=== PATIENT | female | born 1985 | race Native Hawaiian/Other Pacific Islander ===

== ENCOUNTER 2016-06-25 12:25 | Emergency (ER) | payer MEDICAID ==
[~2016-06-25] VITALS: Ht 160 cm; Wt 89.8 kg
[~2016-06-25 12:25] MED LIST: PREN-96 PO
[2016-06-25 13:02] LABS: Basophils # (auto) 0.1 uL; Eosinophils # (auto) 0.3 uL; Hemoglobin 14.2 g/dL (12.2-16.2); Lymphocytes # (auto) 2.1 uL; Lymphocytes % (auto) 19.7 % (10.0-50.0); Mean Corpuscular Hgb Conc. 33.8 g/dL (32.0-36.0); Mean Corpuscular Volume 85.8 fL (80.0-100.0); Mean Platelet Volume 7.2 fL (7.4-10.4); Monocytes # (auto) 0.4 uL; Monocytes % (auto) 4.1 % (0.0-12.0); Neutrophils # (auto) 7.8 uL; Neutrophils % (auto) 72.2 % (37.0-80.0); Platelet Count (auto) 440 10^3/uL (140-450); Red Cell Distribution Width 13.7 % (11.6-16.0); White Blood Cell 10.8 10^3/uL (4.4-10.8)
[2016-06-25 13:26] LABS: Anion Gap 12 (5-15); BUN/Creatinine Ratio 15.3; Blood Urea Nitrogen 11 mg/dL (7-18); Calcium 7.9 mg/dL (8.5-10.1); Carbon Dioxide 23 mmol/L (21-32); Chloride 102 mmol/L (98-107); GFR African American 121 mL/min; GFR Non-African American 100 mL/min; Glucose 109 mg/dL (74-106); Potassium 4.2 mmol/L (3.5-5.1); Sodium 137 mmol/L (136-145)
[2016-06-25 13:29] LABS: Alkaline Phosphatase 72 U/L (45-117); Bilirubin, Total 0.5 mg/dL (0.2-1.0)
[2016-06-25 14:37] LABS: Aspartate Aminotransferase 14 U/L (15-37)
[2016-06-25 20:59] LABS: Urine Bilirubin Negative (Negative); Urine Color Yellow (Yellow); Urine Glucose Normal (Normal); Urine Ketone Negative (Negative); Urine Nitrite Negative (Negative); Urine RBC 7 /hpf (0 - 4); Urine Squamous Epithelial Cell MOD /hpf (<5); Urine Urobilinogen Normal (Negative)
[2016-06-25 21:43] LABS: Urine Blood 2+ /uL (Negative)
[2016-06-25] MEDS ORDERED: cefTRIAXone 1GM/50ML D5W 50 ML IV ONE (22:30)
[2016-06-25 23:29] VITALS: BP 102/66
== END 2016-06-25 23:34 | disposition home or self-care (01) ==
LOC: ER 12:25
DX: R07.89 Other chest pain (principal); N39.0 Urinary tract infection, site not specified; Z88.6 Allergy status to analgesic agent
CPT/HCPCS: 36415; 71020; 80053; 81001; 84484; 84702; 85025; 85379; 93005; 96365; 99285; J0696

== ENCOUNTER 2017-11-05 13:40 | Inpatient (IN) | payer MEDICAID ==
[~2017-11-05] VITALS: Ht 160 cm; Wt 94.3 kg
[2017-11-05] MEDS: LACTATED RINGER'S 1,000 ML IV SCH ×2 (07:30→16:10)
[2017-11-05] MEDS ORDERED: BETAMETHASONE ACET (6MG/ML) 5ML VIAL IM ONE (14:45)
[2017-11-05 15:13] LABS: Urine Bacteria MOD /hpf (None Seen); Urine Blood 3+ /uL (Negative); Urine Mucus FEW (None Seen); Urine Specific Gravity 1.017 (1.001-1.035); Urine WBC 29 /hpf (0 - 5)
[2017-11-05] MEDS ORDERED: LACT. RINGERS/OXYTOCIN 20UNITS 1,000 ML IV SCH (15:29)
[2017-11-05] MEDS ORDERED: NALBUPHINE HCL 10 MG/1ml INJECTION IV PRN (15:30)
[2017-11-05] MEDS ORDERED: PROMETHAZINE HCL 25 MG/ML 1ML IV PRN (15:30)
[2017-11-05] MEDS ORDERED: PHISODERM TOP SOLN 240ML BTL TOP PRN (15:30)
[2017-11-05] MEDS ORDERED: WITCH HAZEL-GLYCERIN PAD TOP PRN (15:30)
[2017-11-05] MEDS ORDERED: DERMOPLAST 60ML BOTTLE TOP PRN (15:30)
[2017-11-05] MEDS ORDERED: LIDOCAINE 2% (LOCAL ANESTH.) PF 5ml SDV ID ONE (15:30)
[2017-11-05 15:59] LABS: Basophils # (auto) 0.1 uL; Basophils % (auto) 0.4 % (0.0-2.0); Eosinophils # (auto) 0.2 uL; Eosinophils % (auto) 1.5 % (0.0-7.0); Hematocrit 39.9 % (36.0-46.0); Hemoglobin 13.7 g/dL (12.2-16.2); Lymphocytes # (auto) 1.5 uL; Lymphocytes % (auto) 13.2 % (10.0-50.0); Mean Corpuscular Hemoglobin 29.8 pg (28.0-32.0); Mean Corpuscular Hgb Conc. 34.3 g/dL (32.0-36.0); Monocytes # (auto) 0.7 uL; Neutrophils # (auto) 9.1 uL; Neutrophils % (auto) 78.9 % (37.0-80.0); Nucleated Red Blood Cells % 0.2 %; Platelet Count (auto) 270 10^3/uL (140-450); Red Blood Cells 4.59 10^6/uL (4.0-5.20); White Blood Cell 11.5 10^3/uL (4.4-10.8)
[2017-11-05 16:15] LABS: Albumin 2.6 g/dL (3.4-5.0); BUN/Creatinine Ratio 14.3; Calcium 8.4 mg/dL (8.5-10.1); Potassium 3.7 mmol/L (3.5-5.1)
[2017-11-05 16:18] LABS: Bilirubin, Total 0.7 mg/dL (0.2-1.0); Total Protein 7.1 g/dL (6.4-8.2)
[2017-11-05 16:28] LABS: INR 0.88 (0.9-1.15); Partial Thromboplastin Time 29.9 sec (23.78-33.04); Prothrombin Time 9.5 sec (9.27-12.13)
[2017-11-05] MEDS ORDERED: IBUPROFEN 600 MG TAB PO PRN (20:45)
[2017-11-05 23:00] VITALS: BP 137/73
[2017-11-06] MEDS ORDERED: LACT. RINGERS/OXYTOCIN 20UNITS 500 ML IV ONE (01:26)
[2017-11-06 03:00] VITALS: BP 114/73
[2017-11-06] MEDS ORDERED: ACETAMINOPHEN 325 MG TAB PO ONE (03:38)
[2017-11-06] MEDS: ACETAMINOPHEN 325 MG TAB PO PRN ×3 (03:42→22:02)
[2017-11-06 07:27] VITALS: BP 129/78
[2017-11-06] MEDS: LACT. RINGERS/OXYTOCIN 20UNITS 1,000 ML IV SCH ×3 (07:30→16:24)
[2017-11-06] MEDS ORDERED: DOCUSATE CALCIUM 240 MG CAP PO SCH (10:00)
[2017-11-06] MEDS: LACTATED RINGER'S 1,000 ML IV SCH ×2 (11:13→16:24)
[2017-11-06 11:29] VITALS: BP 131/62
[2017-11-06 15:00] VITALS: BP 123/79
[2017-11-06 19:15] VITALS: BP 119/77
[2017-11-06 23:00] VITALS: BP 119/77
[2017-11-07 03:00] VITALS: BP 121/75
[2017-11-07] MEDS: ACETAMINOPHEN 325 MG TAB PO PRN (03:09)
[2017-11-07 07:20] VITALS: BP 108/68
[2017-11-07 11:00] VITALS: BP 118/77
[2017-11-08 05:06] LABS: RPR Non Reactive (Non Reactive)
== END 2017-11-07 12:15 | disposition home or self-care (01) | DRG 560 ==
LOC: LDRP 13:40 → OBSVTOIN 13:40 → LDRP 15:29
PROVIDERS: ADMIT Specialist; ATTEND Specialist
PROC: 10E0XZZ Delivery of Products of Conception, External Approach (ICD-10-PCS; principal; 2017-11-05)
PROC: 10907ZC Drainage of Amniotic Fluid, Therapeutic from Products of Conception, Via Natural or Artificial Opening (ICD-10-PCS; 2017-11-05)
PROC: 3E0E3GC Introduction of Other Therapeutic Substance into Products of Conception, Percutaneous Approach (ICD-10-PCS; 2017-11-05)
PROC: 0HQ9XZZ Repair Perineum Skin, External Approach (ICD-10-PCS; 2017-11-05)
DX: O76 Abnormality in fetal heart rate and rhythm complicating labor and delivery (principal); O70.9 Perineal laceration during delivery, unspecified; Z37.0 Single live birth; Z3A.36 36 weeks gestation of pregnancy; Z88.8 Allergy status to other drugs, medicaments and biological substances
CPT/HCPCS: 36415; 59025; 59409; 80053; 81001; 81002; 85025; 85610; 85730; 86592; 86850; 86900; 86901; 96365; 96366; J2001; J2590

== ENCOUNTER 2019-03-01 02:01 | Emergency (ER) | payer MEDICAID ==
[~2019-03-01] VITALS: Ht 160 cm; Wt 98.5 kg
[2019-03-01 02:45] LABS: Basophils # (auto) 0.1 uL; Basophils % (auto) 0.6 % (0.0-2.0); Eosinophils # (auto) 1.2 uL; Eosinophils % (auto) 11.5 % (0.0-7.0); Hematocrit 41.5 % (36.0-46.0); Hemoglobin 14.3 g/dL (12.2-16.2); Lymphocytes % (auto) 28.1 % (10.0-50.0); Mean Corpuscular Hemoglobin 29.3 pg (28.0-32.0); Mean Corpuscular Hgb Conc. 34.4 g/dL (32.0-36.0); Mean Corpuscular Volume 85.2 fL (80.0-100.0); Monocytes # (auto) 0.6 uL; Monocytes % (auto) 6.1 % (0.0-12.0); Neutrophils # (auto) 5.7 uL; Neutrophils % (auto) 53.7 % (37.0-80.0); Nucleated Red Blood Cells % 0.1 %; Platelet Count (auto) 334 10^3/uL (140-450); Red Blood Cells 4.88 10^6/uL (4.0-5.20); Red Cell Distribution Width 13.5 % (11.8-14.3); White Blood Cell 10.6 10^3/uL (4.4-10.8)
[2019-03-01 03:03] LABS: Albumin 3.4 g/dL (3.4-5.0); BUN/Creatinine Ratio 18.8; Calcium 8.8 mg/dL (8.5-10.1); Potassium 3.9 mmol/L (3.5-5.1)
[2019-03-01 03:06] LABS: Bilirubin, Total 0.3 mg/dL (0.2-1.0); Total Protein 8.1 g/dL (6.4-8.2)
[2019-03-01 04:07] VITALS: BP 122/74
[2019-03-01 04:34] LABS: Urine Bacteria FEW /hpf (None Seen); Urine Blood 3+ /uL (Negative); Urine Mucus FEW (None Seen); Urine WBC 82 /hpf (0 - 5)
[2019-03-01] MEDS: cefTRIAXone 1GM/50ML D5W 50 ML IV ONE (04:50)
[2019-03-01] MEDS: MORPHINE SULFATE 4 MG/ML SYR/VIAL IV ONE (04:50)
[2019-03-01] MEDS: ONDANSETRON HCL 4 MG/2 ML VIAL IV ONE (04:50)
== END 2019-03-01 05:48 | disposition home or self-care (01) ==
LOC: ER 02:03
DX: N39.0 Urinary tract infection, site not specified (principal); Z88.6 Allergy status to analgesic agent; Z88.8 Allergy status to other drugs, medicaments and biological substances
CPT/HCPCS: 36415; 74176; 80053; 81001; 85025; 96365; 96375; 99284; J0696; J2270; J2405

== ENCOUNTER 2021-01-26 11:00 | Observation (INO) | payer MEDICAID | END 2021-01-26 12:35 | disposition home or self-care (01) | LOC: LDRP 11:00 | PROVIDERS: ADMIT Obstetrics & Gynecology Obstetrics; ATTEND Obstetrics & Gynecology Obstetrics | DX: O36.8320 Maternal care for abnormalities of the fetal heart rate or rhythm, second trimester, not applicable or unspecified (principal); O02.1 Missed abortion; Z3A.18 18 weeks gestation of pregnancy | CPT/HCPCS: 76805; G0378; G0379 ==